=== PATIENT | female | born 1975 | race American Indian/Alaskan Native ===

== ENCOUNTER 2018-06-29 12:15 | Emergency (ER) | payer BC, OTHER ==
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
[2018-06-29 12:24] VITALS: BP 144/61
[2018-06-29] MEDS ORDERED: ALUM-MAG HYDROX-SIMETH 200-200-20MG/5ML PO ONE (12:52)
[2018-06-29] MEDS ORDERED: TYLENOL PO ONE (12:52)
[2018-06-29] MEDS ORDERED: DELTASONE PO ONE (12:52)
--- NOTE | 2018-06-29 12:54 | XRay Report ---
Chest 2 views: History: Shortness of breath. Findings: Normal cardiomediastinal silhouette. Trachea is midline. No consolidation, pneumothorax or pleural effusion. Impression: No acute cardiopulmonary findings.
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
== END 2018-06-29 13:17 | disposition home or self-care (01) ==
LOC: ED 12:15
DX: J39.2 Other diseases of pharynx (principal); J45.909 Unspecified asthma, uncomplicated; J98.8 Other specified respiratory disorders; Z90.49 Acquired absence of other specified parts of digestive tract; V49.49XA Driver injured in collision with other motor vehicles in traffic accident, initial encounter; Y93.89 Activity, other specified; Y92.89 Other specified places as the place of occurrence of the external cause; Y99.8 Other external cause status
CPT/HCPCS: 71046; 99283; J7512